=== PATIENT | female | born 1950 | race Caucasian/White ===

== ENCOUNTER 2016-12-03 13:37 | Outpatient (CLI) | payer MEDICARE ==
[2016-12-03 16:12] LABS: Hematocrit 41.6 % (36.0-47.0); Mean Platelet Volume 6.8 fL (7.4-10.4); Red Blood Cell (RBC) Count 4.66 mill/uL (4.20-5.40); White Blood Cell (WBC) Count 8.3 thou/uL (4.8-10.8)
== END 2016-12-03 13:38 | disposition home or self-care (01) ==
LOC: LABBT 13:37
PROVIDERS: ATTEND Orthopaedic Surgery
DX: Z01.812 Encounter for preprocedural laboratory examination (principal); T81.30XA Disruption of wound, unspecified, initial encounter; Z88.5 Allergy status to narcotic agent
CPT/HCPCS: 85027; 85652; 86140; 93005; 93010

== ENCOUNTER 2016-12-04 12:25 | Inpatient (IN) | payer MEDICARE ==
[2016-12-04] MEDS ORDERED: Fentanyl 100 MCG/2 ML VIAL ONE ×4 (13:52→16:30)
[2016-12-04] MEDS ORDERED: Midazolam HCl 2 mg/2 ml Vial ONE (13:52)
[2016-12-04 14:16] LABS: Anion Gap 13 mmol/L (10-20); BUN (Urea Nitrogen) 20 mg/dL (9.8-20.1); Calc. Creatinine Clearance 80 mL/min (70-130); Calcium 9.5 mg/dL (7.8-10.44); Carbon Dioxide 22 mmol/L (23-31); Chloride 105 mmol/L (98-107); Estimated GFR-MDRD 69
[2016-12-04] MEDS ORDERED: Bisacodyl 10 MG SUPP PR PRN (14:20)
[2016-12-04] MEDS ORDERED: Milk Of Magnesia 30 ML UDCUP PO PRN (14:20)
[2016-12-04] MEDS ORDERED: Acetaminophen 325 MG TAB PO PRN (14:20)
[2016-12-04] MEDS ORDERED: Ondansetron ODT 4 MG TAB PO PRN (14:20)
[2016-12-04] MEDS ORDERED: Cepastat Lozenges 1 LOZ PO PRN (14:20)
[2016-12-04] MEDS ORDERED: Ketorolac Tromethamine 30 MG/ML VIAL IM PRN (14:20)
[2016-12-04] MEDS ORDERED: Ondansetron HCl/PF 4 MG/2 ML Vial IVP PRN ×2 (14:20→17:00)
[2016-12-04] MEDS ORDERED: traMADol HCl 50 MG TAB PO PRN (14:20)
[2016-12-04] MEDS ORDERED: Lidocaine 2% PF 10 ML AMP (For Epidural Use) ONE (14:24)
[2016-12-04] MEDS ORDERED: Ketorolac Tromethamine 30 MG/ML VIAL ONE (14:24)
[2016-12-04] MEDS ORDERED: Propofol 200 MG/20 ML VIAL ONE (14:24)
[2016-12-04] MEDS ORDERED: HYDROcodone/Acetaminophen 5/325 mg Tablet PO PRN (14:26)
[2016-12-04] MEDS ORDERED: Vancomycin HCl 1 GM in Premix Bag 1 BAG IVPB SCH (15:00)
[2016-12-04] MEDS ORDERED: Promethazine HCl 25 MG/ML VIAL IM/IV PRN (17:00)
[2016-12-04 17:39] VITALS: BMI 30.8
[2016-12-04] MEDS ORDERED: Lisinopril 10 MG TAB PO SCH (18:00)
[2016-12-04] MEDS: HYDROcodone/Acetaminophen 10/325 mg Tablet PO PRN (18:15)
[2016-12-04] MEDS: Piperacillin/Tazobactam 3.375 GM in Sodium Chloride 0.9% 100 ML IVPB SCH ×2 (18:17→23:09)
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
[2016-12-04] MEDS: Ascorbic Acid 500 mg Chewable Tablet PO SCH (20:29)
[2016-12-04] MEDS: Gabapentin 300 MG CAP PO SCH (20:30)
[2016-12-04] MEDS: Cyclobenzaprine 10 MG TAB PO SCH (20:30)
[2016-12-04] MEDS: Aspirin 81 mg Enteric Coated Tablet PO SCH (20:30)
[2016-12-04] MEDS: Senokot S 8.6-50 MG TAB PO SCH (20:30)
[2016-12-04] MEDS: D5 1/2 NS w/20 mEq KCL 1,000 ML IV SCH (20:30)
[2016-12-04] MEDS ORDERED: FLU VACC TS2017-18 (>65YR) 0.5 ML SYRINGE IM ONE (21:00)
[2016-12-05] MEDS ORDERED: Vancomycin HCl 1 GM in Premix Bag 1 BAG IVPB SCH (03:00)
[2016-12-05] MEDS: HYDROcodone/Acetaminophen 10/325 mg Tablet PO PRN ×4 (05:18→21:24)
[2016-12-05] MEDS: Piperacillin/Tazobactam 3.375 GM in Sodium Chloride 0.9% 100 ML IVPB SCH ×4 (05:18→23:54)
[2016-12-05 05:49] LABS: #Basophils 0.1 thou/uL (0.0-0.2); #Eosinphils 0.2 thou/uL (0.0-0.7); #Lymphocytes 1.7 thou/uL (1.20-3.40); #Monocytes 0.8 thou/uL (0.11-0.59); #Neutrophils 6.1 thou/uL (1.40-6.50); %Basophils 0.7 % (0.0-1.0); %Eosinophils 1.9 % (0.0-10.0); %Lymphocytes 18.9 % (21.0-51.0); Mean Platelet Volume 6.5 fL (7.4-10.4); Red Blood Cell (RBC) Count 4.37 mill/uL (4.20-5.40); White Blood Cell (WBC) Count 8.7 thou/uL (4.8-10.8)
[2016-12-05 06:09] LABS: Anion Gap 8 mmol/L (10-20); BUN (Urea Nitrogen) 18 mg/dL (9.8-20.1); Calc. Creatinine Clearance 86 mL/min (70-130); Calcium 8.8 mg/dL (7.8-10.44); Carbon Dioxide 28 mmol/L (23-31); Chloride 105 mmol/L (98-107); Estimated GFR-MDRD 73
[2016-12-05] MEDS: D5 1/2 NS w/20 mEq KCL 1,000 ML IV SCH ×2 (06:56→22:52)
[2016-12-05] MEDS ORDERED: [UNRECOGNIZED DRUG - OTHER] PO SCH (09:00)
[2016-12-05] MEDS ORDERED: BIOTIN 10000 MCG PO SCH (09:00)
[2016-12-05] MEDS: Polyethylene Glycol 3350 17 GM Packet PO SCH (09:36)
[2016-12-05] MEDS: Cyanocobalamin (Vitamin B-12) 1,000 MCG TAB PO SCH (09:37)
[2016-12-05] MEDS: Cyclobenzaprine 10 MG TAB PO SCH ×2 (09:37→21:25)
[2016-12-05] MEDS: Enoxaparin Sodium 40 MG/0.4 ML SYRINGE SC SCH (09:37)
[2016-12-05] MEDS: Multivitamin W/ Minerals 1 TAB PO SCH (09:38)
[2016-12-05] MEDS: Fish Oil 1,000 MG CAP PO SCH (09:38)
[2016-12-05] MEDS: Calcium Carbonate 500 MG TAB PO SCH ×2 (09:38→16:37)
[2016-12-05] MEDS: Lisinopril 10 MG TAB PO SCH (09:39)
[2016-12-05] MEDS: Gabapentin 300 MG CAP PO SCH ×3 (09:39→21:25)
[2016-12-05] MEDS: Magnesium Oxide 250 MG TAB PO SCH (09:40)
[2016-12-05] MEDS: Aspirin 81 mg Enteric Coated Tablet PO SCH ×2 (09:40→21:27)
[2016-12-05] MEDS: Senokot S 8.6-50 MG TAB PO SCH ×2 (09:40→21:27)
[2016-12-05] MEDS: Ascorbic Acid 500 mg Chewable Tablet PO SCH ×2 (09:40→21:27)
[2016-12-05] MEDS: Stress 600 With Zinc 1 TAB PO SCH (09:41)
[2016-12-06 05:36] LABS: Anion Gap 9 mmol/L (10-20); BUN (Urea Nitrogen) 19 mg/dL (9.8-20.1); Calc. Creatinine Clearance 81 mL/min (70-130); Calcium 8.7 mg/dL (7.8-10.44); Carbon Dioxide 27 mmol/L (23-31); Chloride 107 mmol/L (98-107); Estimated GFR-MDRD 68
[2016-12-06] MEDS: HYDROcodone/Acetaminophen 10/325 mg Tablet PO PRN ×2 (06:10→20:33)
[2016-12-06] MEDS: Piperacillin/Tazobactam 3.375 GM in Sodium Chloride 0.9% 100 ML IVPB SCH ×3 (06:11→18:42)
[2016-12-06] MEDS: Senokot S 8.6-50 MG TAB PO SCH ×2 (09:40→20:35)
[2016-12-06] MEDS: Fish Oil 1,000 MG CAP PO SCH (09:40)
[2016-12-06] MEDS: Multivitamin W/ Minerals 1 TAB PO SCH (09:40)
[2016-12-06] MEDS: Magnesium Oxide 250 MG TAB PO SCH (09:40)
[2016-12-06] MEDS: Aspirin 81 mg Enteric Coated Tablet PO SCH ×2 (09:40→20:35)
[2016-12-06] MEDS: Polyethylene Glycol 3350 17 GM Packet PO SCH (09:40)
[2016-12-06] MEDS: Lisinopril 10 MG TAB PO SCH (09:41)
[2016-12-06] MEDS: Cyclobenzaprine 10 MG TAB PO SCH ×2 (09:41→20:35)
[2016-12-06] MEDS: Ascorbic Acid 500 mg Chewable Tablet PO SCH ×2 (09:41→20:35)
[2016-12-06] MEDS: Calcium Carbonate 500 MG TAB PO SCH ×2 (09:41→18:42)
[2016-12-06] MEDS: Gabapentin 300 MG CAP PO SCH ×3 (09:41→20:35)
[2016-12-06] MEDS: Cyanocobalamin (Vitamin B-12) 1,000 MCG TAB PO SCH (09:41)
[2016-12-06] MEDS: Stress 600 With Zinc 1 TAB PO SCH (09:45)
[2016-12-06] MEDS: Enoxaparin Sodium 40 MG/0.4 ML SYRINGE SC SCH (09:46)
--- NOTE | 2016-12-06 11:45 | SPC ---
ULTRASOUND GUIDED LEFT UPPER EXTREMITY PICC LINE PLACEMENT DATE: 12/06/2016 HISTORY: Left foot infection. The patient needs long-term IV antibiotics. FLUOROSCOPY: Total fluoroscopy time is 0.2 minutes with total dose of 1215 mGy*cm2. TECHNIQUE: After informed consent was obtained, the patient was placed on the angiography table in the supine p osition. An appropriate access site was determined with ultrasound guidance. The skin and subcutan eous tissues were infiltrated with buffered 1% lidocaine for local anesthesia at the intended punctu re site. The left brachial vein was accessed utilizing micropuncture technique and concurrent real-time ultra sound guidance. A 5-Polish peel-away sheath was placed. The guidewire was placed into the IVC to c onfirm placement in the venous system. The catheter was then measured and cut to the appropriate le ngth. Catheter was placed over the guidewire with the tip position overlying the cavoatrial junctio n. Guidewire and peel-away sheath were removed. The catheter was accessed and aspirated/flushed ea sily. The catheter was secured to the skin utilizing a Stat-Lock device. A dry sterile dressing wa s placed. FINDINGS: Technically successful placement of a single-lumen 5-Polish 44.5 cm PICC line via the left brachial vein. Tip of the catheter overlies the cavoatrial junction. Final spot fluoroscopic image of babar ter placement is obtained. IMPRESSION: Technically successful left upper extremity PICC line placement. POS: [facility]
[2016-12-06] MEDS: D5 1/2 NS w/20 mEq KCL 1,000 ML IV SCH (13:04)
[2016-12-06] MEDS ORDERED: Labetalol HCl 100 MG/20 ML VIAL SLOW IVP PRN (16:48)
[2016-12-06] MEDS: traMADol HCl 50 MG TAB PO PRN (18:42)
[2016-12-06] MEDS: Metoprolol Tartrate 25 MG TAB PO SCH (20:35)
[2016-12-06] MEDS: Vancomycin HCl 1 GM in Premix Bag 1 BAG IVPB SCH (20:37)
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
[2016-12-07] MEDS: Piperacillin/Tazobactam 3.375 GM in Sodium Chloride 0.9% 100 ML IVPB SCH ×5 (00:58→19:43)
[2016-12-07] MEDS: D5 1/2 NS w/20 mEq KCL 1,000 ML IV SCH ×2 (03:19→19:47)
[2016-12-07 05:57] LABS: Anion Gap 11 mmol/L (10-20); BUN (Urea Nitrogen) 17 mg/dL (9.8-20.1); Calc. Creatinine Clearance 86 mL/min (70-130); Calcium 9.4 mg/dL (7.8-10.44); Carbon Dioxide 25 mmol/L (23-31); Chloride 107 mmol/L (98-107); Estimated GFR-MDRD 73
[2016-12-07] MEDS ORDERED: Lisinopril 10 MG TAB PO SCH (09:00)
[2016-12-07] MEDS: Vancomycin HCl 1 GM in Premix Bag 1 BAG IVPB SCH ×2 (09:43→21:33)
[2016-12-07] MEDS: traMADol HCl 50 MG TAB PO PRN (09:43)
[2016-12-07] MEDS: Aspirin 81 mg Enteric Coated Tablet PO SCH ×2 (09:43→21:34)
[2016-12-07] MEDS: Cyclobenzaprine 10 MG TAB PO SCH ×2 (09:44→21:34)
[2016-12-07] MEDS: Gabapentin 300 MG CAP PO SCH ×3 (09:44→21:38)
[2016-12-07] MEDS: Lisinopril 10 MG TAB PO SCH (09:46)
[2016-12-07] MEDS: Metoprolol Tartrate 25 MG TAB PO SCH ×2 (09:46→21:34)
[2016-12-07] MEDS: Enoxaparin Sodium 40 MG/0.4 ML SYRINGE SC SCH (09:48)
[2016-12-07] MEDS: Polyethylene Glycol 3350 17 GM Packet PO SCH (09:48)
[2016-12-07] MEDS: Ascorbic Acid 500 mg Chewable Tablet PO SCH ×2 (09:49→21:34)
[2016-12-07] MEDS: Magnesium Oxide 250 MG TAB PO SCH (09:49)
[2016-12-07] MEDS: Multivitamin W/ Minerals 1 TAB PO SCH (09:50)
[2016-12-07] MEDS: Calcium Carbonate 500 MG TAB PO SCH ×2 (09:50→19:42)
[2016-12-07] MEDS: Cyanocobalamin (Vitamin B-12) 1,000 MCG TAB PO SCH (09:50)
[2016-12-07] MEDS: Senokot S 8.6-50 MG TAB PO SCH ×2 (09:51→21:34)
[2016-12-07] MEDS: Fish Oil 1,000 MG CAP PO SCH (09:51)
[2016-12-07] MEDS: Stress 600 With Zinc 1 TAB PO SCH (09:53)
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
[2016-12-07] MEDS: HYDROcodone/Acetaminophen 10/325 mg Tablet PO PRN (19:54)
[2016-12-08] MEDS: Gabapentin 300 MG CAP PO SCH ×4 (01:13→21:48)
[2016-12-08] MEDS: Piperacillin/Tazobactam 3.375 GM in Sodium Chloride 0.9% 100 ML IVPB SCH ×3 (01:14→12:14)
[2016-12-08] MEDS: HYDROcodone/Acetaminophen 10/325 mg Tablet PO PRN ×2 (06:21→21:48)
[2016-12-08] MEDS: Vancomycin HCl 1 GM in Premix Bag 1 BAG IVPB SCH (09:35)
[2016-12-08] MEDS: Enoxaparin Sodium 40 MG/0.4 ML SYRINGE SC SCH (09:40)
[2016-12-08] MEDS: Polyethylene Glycol 3350 17 GM Packet PO SCH (09:41)
[2016-12-08] MEDS: Fish Oil 1,000 MG CAP PO SCH (09:41)
[2016-12-08] MEDS: Cyclobenzaprine 10 MG TAB PO SCH ×2 (09:42→21:47)
[2016-12-08] MEDS: Magnesium Oxide 250 MG TAB PO SCH (09:42)
[2016-12-08] MEDS: Cyanocobalamin (Vitamin B-12) 1,000 MCG TAB PO SCH (09:43)
[2016-12-08] MEDS: Multivitamin W/ Minerals 1 TAB PO SCH (09:44)
[2016-12-08] MEDS: Ascorbic Acid 500 mg Chewable Tablet PO SCH ×2 (09:44→21:49)
[2016-12-08] MEDS: Lisinopril 10 MG TAB PO SCH (09:45)
[2016-12-08] MEDS: Calcium Carbonate 500 MG TAB PO SCH ×2 (09:45→16:18)
[2016-12-08] MEDS: Metoprolol Tartrate 25 MG TAB PO SCH ×2 (09:45→21:49)
[2016-12-08] MEDS: Aspirin 81 mg Enteric Coated Tablet PO SCH ×2 (09:46→21:47)
[2016-12-08] MEDS: Senokot S 8.6-50 MG TAB PO SCH ×2 (09:46→22:09)
[2016-12-08] MEDS: Stress 600 With Zinc 1 TAB PO SCH (09:51)
[2016-12-08] MEDS: D5 1/2 NS w/20 mEq KCL 1,000 ML IV SCH (12:15)
--- NOTE | 2016-12-08 12:40 | PDOC.PN ---
- Subjective Encounter Start Date: 12/08/16 Encounter Start Time: 11:40 Pt seen and exmained, no complaints, no events. BP this morning systolic 159. increased norvasc to 10mg, dose given, BP not rechecked by the time of the visit. Since then, repet BP 137 systolic no F/C,no N/V/d/c. tolerating IB abx, no itching or rash. DrLmos following. Pt hoping to go home otmorrowon IV abx PICC functioning well 10 point ROS performed and neg for all systems except as above - Objective MAR Reviewed: Yes Vital Signs & Weight: Vital Signs (12 hours) Temp Pulse Resp BP BP BP Pulse Ox 12/08/16 12:13 74 164/90 H 12/08/16 11:45 97.8 F 66 18 148/83 H 95 12/08/16 11:38 137/75 12/08/16 09:54 74 164/90 H 12/08/16 09:45 164/90 H 12/08/16 08:15 97.6 F 74 18 164/90 H 94 L 12/08/16 03:57 97.7 F 67 16 154/85 H 94 L Weight Admit Weight 174 lb 2.64 oz Weight 174 lb 2.64 oz I&O: 12/07/16 12/08/16 12/09/16 06:59 06:59 06:59 Intake Total 780 1780 Balance 780 1780 Result Diagrams: 12/05/16 05:01 12/07/16 04:47 Phys Exam - Physical Examination Constitutional: NAD HEENT: PERRLA, moist MMs, sclera anicteric, oral pharynx no lesions Neck: no nodes, no JVD, supple, full ROM Respiratory: no wheezing, no rales, no rhonchi, clear to auscultation bilateral Cardiovascular: RRR, no significant murmur, no rub Gastrointestinal: soft, non-tender, no distention, positive bowel sounds Musculoskeletal: no edema, pulses present Neurological: non-focal, normal sensation, moves all 4 limbs Lymphatic: no nodes Psychiatric: normal affect, A&O x 3 Skin: no rash, normal turgor, cap refill <2 seconds Dx/Plan (1) HTN (hypertension) Code(s): I10 - ESSENTIAL (PRIMARY) HYPERTENSION Status: Chronic Qualifiers: Hypertension type: essential hypertension Qualified Code(s): I10 - Essential (primary) hypertension Comment: better on norvasc plus lisinopril. continue both at present. Will sign off, can follow up with PCP. please call for additional needs (2) Postoperative wound infection Code(s): T81.4XXA - INFECTION FOLLOWING A PROCEDURE, INITIAL ENCOUNTER Status : Acute Qualifiers: Encounter type: initial encounter Qualified Code(s): T81.4XXA - Infection following a procedure, initial encounter Comment: s/p I&D. MSSa, E coli, CoNS. In vanc adn Zosyn. to be srewamlined by Dr cannon. PICC in place. planning for half-way IV antibiotics (3) Acute osteomyelitis of left calcaneus Code(s): M86.172 - OTHER ACUTE OSTEOMYELITIS, LEFT ANKLE AND FOOT Status: Acute (4) Postoperative anemia due to acute blood loss Code(s): D62 - ACUTE POSTHEMORRHAGIC ANEMIA Status: Resolved - Plan cont current plan of care, continue antibiotics, PT/OT * .
[2016-12-08] MEDS: cefTRIAXone\\ROCEPHIN 2 GM in Sodium Chloride 0.9% 100 ML IVPB SCH (16:18)
[2016-12-09] MEDS: D5 1/2 NS w/20 mEq KCL 1,000 ML IV SCH ×2 (01:51→19:31)
[2016-12-09] MEDS: HYDROcodone/Acetaminophen 10/325 mg Tablet PO PRN (05:23)
[2016-12-09] MEDS: Cyanocobalamin (Vitamin B-12) 1,000 MCG TAB PO SCH (08:41)
[2016-12-09] MEDS: Fish Oil 1,000 MG CAP PO SCH (08:41)
[2016-12-09] MEDS: Magnesium Oxide 250 MG TAB PO SCH (08:42)
[2016-12-09] MEDS: Lisinopril 10 MG TAB PO SCH (08:42)
[2016-12-09] MEDS: Senokot S 8.6-50 MG TAB PO SCH (08:42)
[2016-12-09] MEDS: Multivitamin W/ Minerals 1 TAB PO SCH (08:42)
[2016-12-09] MEDS: Cyclobenzaprine 10 MG TAB PO SCH (08:42)
[2016-12-09] MEDS: Calcium Carbonate 500 MG TAB PO SCH ×2 (08:42→17:41)
[2016-12-09] MEDS: Stress 600 With Zinc 1 TAB PO SCH (08:42)
[2016-12-09] MEDS: Enoxaparin Sodium 40 MG/0.4 ML SYRINGE SC SCH (08:43)
[2016-12-09] MEDS: Metoprolol Tartrate 25 MG TAB PO SCH (08:43)
[2016-12-09] MEDS: Gabapentin 300 MG CAP PO SCH ×2 (08:43→14:12)
[2016-12-09] MEDS: Polyethylene Glycol 3350 17 GM Packet PO SCH (08:43)
[2016-12-09] MEDS: Aspirin 81 mg Enteric Coated Tablet PO SCH (08:43)
[2016-12-09] MEDS: Ascorbic Acid 500 mg Chewable Tablet PO SCH (08:43)
--- NOTE | 2016-12-09 11:02 | PDOC.PN ---
- Subjective Encounter Start Date: 12/09/16 Encounter Start Time: 11:00 Ms. Welch does not have any complaints. She is anxious to be discharged. - Objective MAR Reviewed: Yes Vital Signs & Weight: Vital Signs (12 hours) Temp Pulse Resp BP BP Pulse Ox 12/09/16 08:43 71 137/80 12/09/16 08:42 137/80 12/09/16 07:32 97.9 F 71 14 137/80 94 L 12/09/16 04:00 97.8 F 71 16 158/85 H 93 L 12/09/16 00:00 97.9 F 65 14 176/78 H 93 L Weight Admit Weight 174 lb 2.64 oz Weight 174 lb 2.64 oz I&O: 12/08/16 12/09/16 12/10/16 06:59 06:59 06:59 Intake Total 1780 1790 Balance 1780 1790 Result Diagrams: 12/05/16 05:01 12/07/16 04:47 Phys Exam - Physical Examination HEENT: PERRLA Respiratory: no wheezing, no rales, no rhonchi, clear to auscultation bilateral Cardiovascular: RRR, no significant murmur Gastrointestinal: soft, non-tender, positive bowel sounds Musculoskeletal: no edema Dx/Plan (1) Acute osteomyelitis of left calcaneus Code(s): M86.172 - OTHER ACUTE OSTEOMYELITIS, LEFT ANKLE AND FOOT Status: Acute (2) Postoperative wound infection Code(s): T81.4XXA - INFECTION FOLLOWING A PROCEDURE, INITIAL ENCOUNTER Status : Acute Qualifiers: Encounter type: initial encounter Qualified Code(s): T81.4XXA - Infection following a procedure, initial encounter Comment: s/p I&D. MSSa, E coli, CoNS. In vanc adn Zosyn. to be srewamlined by Dr cannon. PICC in place. planning for roasterman IV antibiotics (3) HTN (hypertension) Code(s): I10 - ESSENTIAL (PRIMARY) HYPERTENSION Status: Chronic Qualifiers: Hypertension type: essential hypertension Qualified Code(s): I10 - Essential (primary) hypertension Comment: better on norvasc plus lisinopril. continue both at present. Will sign off, can follow up with PCP. please call for additional needs (4) S/P hardware removal Code(s): Z98.890 - OTHER SPECIFIED POSTPROCEDURAL STATES Status: Acute - Plan * Ankle infection, with possible infected hardware- wound culture is growing E Coli, and Staph Aureus, both of which are sensitive to Rocephin * HTN- blood pressures are better after the addition of Amlodipine * Awaiting arrangements for Outpatient IV Rocephin prior to discharge.
[2016-12-09] MEDS: cefTRIAXone\\ROCEPHIN 2 GM in Sodium Chloride 0.9% 100 ML IVPB SCH (14:12)
[2016-12-09] MEDS: traMADol HCl 50 MG TAB PO PRN (14:12)
[2016-12-09 15:54] VITALS: BP 158/80; TEMP 97.4
--- NOTE | 2016-12-10 10:10 | DIS ---
TRANSITIONAL CARE SUMMARY DATE OF ADMISSION: 12/04/2016 DATE OF DISCHARGE: 12/09/2016 ATTENDING PHYSICIAN: Michael Dee M.D. PRIMARY CARE PHYSICIAN: Maco Reilly M.D. DISCHARGE DISPOSITION: Home. PRIMARY DISCHARGE DIAGNOSES: 1. Postop infection of the ankle. 2. Hypertension. 3. History of degenerative joint disease. DISCHARGE MEDICATIONS: Include Rocephin 2 grams IV until 12/2016, amlodipine 10 mg p.o. daily, tram adol 100 mg q.4 hours as needed for pain, MiraLax 17 grams daily, lycopene 1 capsule daily, Toprol-X L 25 mg twice daily, magnesium oxide 400 mg daily, lisinopril 10 mg daily, krill oil 1 tablet daily, Vanderbilt 10/325 one tablet q.4 hours as needed for pain, Neurontin 300 mg t.i.d., Flexeril 10 mg twice a day, vitamin B12 5000 mcg daily, vitamin D3 1000 units daily, and Os-Deejay D 500 mg twice daily, Bi otin 10,000 mcg daily, aspirin 81 mg a day. PROCEDURES DONE DURING ADMISSION: The patient had an irrigation and debridement of the medial ankle with ankle arthrotomy and lateral wound irrigation CODE STATUS: FULL CODE. ALLERGIES: MORPHINE. HOSPITAL COURSE: Ms. Welch is a pleasant 63-year-old female, who was admitted electively due to a n infection in her left ankle. She underwent a debridement and wound irrigation. Wound cultures we re obtained and grew out E. coli as well as coagulase-negative Staph as well as Staph aureus, all of which were sensitive to Rocephin. She had an IV or a PICC line placed and her antibiotics were tra nsitioned to IV Rocephin, which she will need to complete until 01/10/2017. Arrangements were made for her to obtain IV antibiotics, and she was subsequently discharged home to have a close followup with Wound Care and also for monitoring her CBC, etc., with regards to the IV antibiotic therapy. A mlodipine was also added for better blood pressure control.
== END 2016-12-09 19:20 | disposition home or self-care (01) | DRG 902 ==
LOC: SDC 12:25 → SJJU 14:20
PROVIDERS: ADMIT Orthopaedic Surgery; ATTEND Orthopaedic Surgery
PROC: 0JBR0ZZ Excision of Left Foot Subcutaneous Tissue and Fascia, Open Approach (ICD-10-PCS; principal; 2016-12-04)
PROC: 02HV33Z Insertion of Infusion Device into Superior Vena Cava, Percutaneous Approach (ICD-10-PCS; 2016-12-06)
DX: T81.31XA Disruption of external operation (surgical) wound, not elsewhere classified, initial encounter (principal); T81.4XXA Infection following a procedure, initial encounter; M86.172 Other acute osteomyelitis, left ankle and foot; G62.9 Polyneuropathy, unspecified; I10 Essential (primary) hypertension; D62 Acute posthemorrhagic anemia; B95.61 Methicillin susceptible Staphylococcus aureus infection as the cause of diseases classified elsewhere; B96.20 Unspecified Escherichia coli [E. coli] as the cause of diseases classified elsewhere; M19.90 Unspecified osteoarthritis, unspecified site; G40.909 Epilepsy, unspecified, not intractable, without status epilepticus; Z87.81 Personal history of (healed) traumatic fracture; Z87.820 Personal history of traumatic brain injury; Z88.5 Allergy status to narcotic agent
CPT/HCPCS: 36415; 36569; 80048; 85025; 85027; 85652; 86140; 87070; 87077; 87186; 87205; 93005; 93010; C1751; G8978-GP-CL; G8979-GP-CJ; J0696; J1650; J1885; J2001; J2250; J2543; J2704; J3010; J3370; J7050

== ENCOUNTER 2018-11-18 09:59 | Outpatient (CLI) | payer MEDICARE ==
--- NOTE | 2018-11-18 12:06 | BD ---
DEXA BONE DENSITY STUDY: Date: 11/18/18 HISTORY: Postmenopausal osteoporosis screening. COMPARISON: None. FINDINGS: Lumbar Spine: BMD (g/cm2) L1 1.048 T-Score: 0.5 Z-Score: 2.4 L2 1.107 T-Score: 0.7 Z-Score: 2.8 L3 1.217 T-Score: 1.2 Z-Score: 3.4 L4 1.159 T-Score: 0.9 Z-Score: 3.1 L1-L4 1.131 T-Score: 0.8 Z-Score: 2.9 Right Femoral Neck: 0.696 T-Score: -1.4 Z-Score: 0.4 Total Right Hip: 1.025 T-Score: 0.7 Z-Score: 2.1 WHO Classification: Osteopenia. IMPRESSION: Osteopenia with elevated fracture risk. POS: [facility]
== END 2018-11-18 10:00 | disposition home or self-care (01) ==
LOC: BICMAMMO 09:59
PROVIDERS: ATTEND Internal Medicine
DX: Z13.820 Encounter for screening for osteoporosis (principal); Z78.0 Asymptomatic menopausal state; M85.851 Other specified disorders of bone density and structure, right thigh
CPT/HCPCS: 77080

== ENCOUNTER 2018-12-03 13:25 | Outpatient (CLI) | payer MEDICARE ==
--- NOTE | 2018-12-03 16:05 | MMO ---
Bilateral MAMMO Bilat Screen [facility]. CLINICAL HISTORY: Patient is 68 years old and is seen for screening. The patient has the following family history of breast cancer: paternal aunt and sister, at age 38. The patient has no personal history of cancer. The patient has a history of left cyst aspiration at age 39 - benign and left needle biopsy at age 39 - benign. VIEWS: The views performed were: bilateral craniocaudal with tomosynthesis and bilateral mediolateral oblique with tomosynthesis. FILMS COMPARED: The present examination has been compared to prior imaging studies performed at [facility] on 06/09/2008, and at [facility] on 11/22/2005, 12/27/2005 and 07/15/2006. This study has been interpreted with the assistance of computer-aided detection. MAMMOGRAM FINDINGS: There are scattered fibroglandular densities. There are no suspicious masses, suspicious calcifications, or new areas of architectural distortion. IMPRESSION: THERE IS NO MAMMOGRAPHIC EVIDENCE OF MALIGNANCY. A ROUTINE FOLLOW-UP MAMMOGRAM IN 1 YEAR IS RECOMMENDED. THE RESULTS OF THIS EXAM WERE SENT TO THE PATIENT. ACR BI-RADS Category 1 - Negative MAMMOGRAPHY NOTE: 1. A negative mammogram report should not delay a biopsy if a dominant of clinically suspicious mass is present. 2. Approximately 10% to 15% of breast cancers are not detected by mammography. 3. Adenosis and dense breasts may obscure an underlying neoplasm. Reported by: ANDRE MARSHALL MD Electonically Signed: [id number]
== END 2018-12-03 13:26 | disposition home or self-care (01) ==
LOC: BICMAMMO 13:25
PROVIDERS: ATTEND Internal Medicine
DX: Z12.31 Encounter for screening mammogram for malignant neoplasm of breast (principal); Z91.89 Other specified personal risk factors, not elsewhere classified; Z80.3 Family history of malignant neoplasm of breast
CPT/HCPCS: 77063; 77067

== ENCOUNTER 2019-07-13 22:50 | Inpatient (IN) | payer MEDICARE ==
--- NOTE | 2019-07-13 23:52 | RAD ---
Exam: Chest one view HISTORY:Fever Comparison: 05/20/2016 FINDINGS: Cardiac silhouette: Normal Aorta: Unremarkable Pulmonary vessels: Normal Costophrenic angles: Clear LUNGS: Linear density in the right lung base may represent subsegmental atelectasis or scar. Pneumothorax: None Osseous abnormalities: None IMPRESSION: No acute cardiopulmonary process.
[2019-07-14 00:01] LABS: #Lymphocytes 0.9 thou/uL (1.20-3.40); #Monocytes 1.5 thou/uL (0.11-0.59); #Neutrophils 13.4 thou/uL (1.40-6.50); %Basophils 0.1 % (0.0-1.0); %Eosinophils 0.2 % (0.0-10.0); %Lymphocytes 5.7 % (21.0-51.0); %Monocytes 9.6 % (0.0-10.0); %Neutrophils 84.3 % (42.0-75.0); Hemoglobin 12.5 g/dL (12.0-16.0); Mean Corpuscular HGB CONC 33.1 g/dL (32.0-36.0); Mean Corpuscular Hemoglobin 30.8 pg (27.0-31.0); Mean Platelet Volume 7.2 fL (7.4-10.4); Platelet Count 226 thou/uL (130-400); RBC Distribution Width 11.2 % (11.5-14.5); Red Blood Cell (RBC) Count 4.05 mill/uL (4.20-5.40); White Blood Cell (WBC) Count 15.8 thou/uL (4.8-10.8)
--- NOTE | 2019-07-14 00:03 | CT ---
Exam: Head CT without contrast HISTORY: Altered mental status. Fever. COMPARISON: 03/30/2016 FINDINGS: Hemorrhage: No intraparenchymal hemorrhage or extra-axial hematoma. Brain parenchyma: Cortical alvarez-white matter differentiation is preserved. No mass effect or midline shift. Basilar cisterns are patent. Ventricular system: Ventricles and sulci are patent and symmetric. Calvarium: Intact. Sinuses and mastoid air cells: Adequate aeration. IMPRESSION: No acute intracranial process.
[2019-07-14 00:18] LABS: ALT (SGPT) 101 U/L (8-55); AST (SGOT) 75 U/L (5-34); Albumin 3.6 g/dL (3.4-4.8); Alkaline Phosphatase 217 U/L (40-110); Anion Gap 12 mmol/L (10-20); BUN (Urea Nitrogen) 14 mg/dL (9.8-20.1); Calc. Creatinine Clearance 0 mL/min (70-130); Calcium 8.5 mg/dL (7.8-10.44); Carbon Dioxide 23 mmol/L (23-31); Chloride 105 mmol/L (98-107); Estimated GFR-MDRD 55; Glucose 158 mg/dL (80-115); Protein, Total 6.6 g/dL (6.0-8.3); Sodium 137 mmol/L (136-145)
[2019-07-14] MEDS ORDERED: Potassium Chloride 20 MEQ TAB ONE (01:34)
[2019-07-14 02:21] LABS: Bacteria/HPF 4+ HPF (None Seen); Bilirubin Negative (Negative); Blood, Urine 2+ (Negative); Clarity Turbid (Clear); Glucose, Urine (Dipstick) Normal (Negative); Leukocyte 500 Leu/uL (Negative); Nitrite 2+ (Negative); Protein, Urine (Dipstick) 70 mg/dL (Neg-Trace); Squamous Epithelial 0-3 HPF (0-3); Urobilinogen Normal mg/dL (Less than 2); WBC/HPF Greater than 50 HPF (0-3)
[2019-07-14] MEDS ORDERED: Acetaminophen 325 MG TAB PO PRN (02:46)
[2019-07-14 03:07] VITALS: BMI 30.9
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
[2019-07-14] MEDS: cefTRIAXone\\ROCEPHIN 1 GM in Sodium Chloride 0.9% 100 ML IVPB SCH (04:24)
[2019-07-14] MEDS: Lactated Ringer's 1,000 ML IV SCH ×2 (04:25→05:08)
[2019-07-14] MEDS ORDERED: Ondansetron ODT 4 MG TAB PO PRN (04:26)
[2019-07-14] MEDS ORDERED: Potassium Chloride 20 MEQ TAB PO SCH (04:30)
[2019-07-14] MEDS: Potassium Chloride 8 MEQ TAB PO SCH ×2 (07:10→16:27)
[2019-07-14] MEDS: Calcium Carbonate 600 MG TAB PO SCH (07:10)
[2019-07-14] MEDS: Enoxaparin Sodium 30 MG/0.3 ML SYRINGE SC SCH (07:10)
[2019-07-14] MEDS: Lisinopril 10 MG TAB PO SCH (07:11)
[2019-07-14] MEDS: Magnesium Oxide 250 MG TAB PO SCH (07:11)
[2019-07-14] MEDS: Gabapentin 300 MG CAP PO SCH ×3 (07:11→21:27)
[2019-07-14] MEDS: Multivitamin W/ Minerals 1 TAB PO SCH (07:11)
[2019-07-14 07:45] LABS: HBCM Index 0.43 S/CO (0-0.79); HBSAg Index 0.14 S/CO (0-0.99); Hep A IgM AB Non-Reactive (NonReactive); Hep A IgM S/CO 0.12 S/CO (0-0.79); Hep B Surf Ag Non-Reactive S/CO (NonReactive); Hep C IgG Ab Non-Reactive (NonReactive); Hep C Index 0.12 S/CO (0-0.79); Hepatitis B Core IgM Abs Non-Reactive (NonReactive)
[2019-07-14 11:24] LABS: SARS-CoV-2 MS2 Positive; SARS-CoV-2 N Gene Negative; SARS-CoV-2 S Gene Negative; SARS-CoV-2 orf1ab Negative
[2019-07-14 13:37] LABS: Anion Gap 11 mmol/L (10-20); BUN (Urea Nitrogen) 10 mg/dL (9.8-20.1); Calc. Creatinine Clearance 83 mL/min (70-130); Calcium 8.9 mg/dL (7.8-10.44); Carbon Dioxide 24 mmol/L (23-31); Chloride 106 mmol/L (98-107); Estimated GFR-MDRD 69; Glucose 144 mg/dL (80-115); Potassium 3.5 mmol/L (3.5-5.1); Sodium 137 mmol/L (136-145)
--- NOTE | 2019-07-14 14:59 | ULT ---
RENAL ULTRASOUND: INDICATION: History of CVA tenderness on the right with UTI and pyelonephritis. COMPARISON: None. FINDINGS: The right kidney measures 11.5 x 5.4 cm with right renal cortical thickness of 1.4 cm. No hydronephr osis is demonstrated. The echogenicity of the kidney is within normal limits. The left kidney measured 12.0 x 4.2 cm with left renal cortical thickness of 1.1 cm. No hydronephros is is grossly evident. Incidental peripelvic cyst is seen within the inferior pole of the left kidne y measuring 1.1 cm. An additional 1.1 cm cyst is seen within the left mid kidney. The bladder is largely decompressed. IMPRESSION: 1. No suspicious sonographic abnormality involving both kidneys. There is mild diffuse renal cortic al thinning involving the left kidney with left peripelvic cysts. 2. Decompression of the bladder. POS: [facility]
--- NOTE | 2019-07-14 15:30 | EKG ---
Test Reason : Blood Pressure : / mmHG Vent. Rate : 105 BPM Atrial Rate : 105 BPM P-R Int : 156 ms QRS Dur : 102 ms QT Int : 356 ms P-R-T Axes : 032 026 040 degrees QTc Int : 470 ms Sinus tachycardia Otherwise normal ECG Confirmed by IMMANUEL RODRIGUEZ, OMA Wade ([id number]), commissioning editor TEJ DEE ([id number]) on 07/14/2019 3:30:10 PM Referred By: Confirmed By:OMA GAMBINO MD
[2019-07-14] MEDS: Acetaminophen 325 MG TAB PO PRN (18:15)
[2019-07-14] MEDS ORDERED: Amlodipine 5 MG TAB PO SCH (21:00)
[2019-07-15] MEDS: cefTRIAXone\\ROCEPHIN 1 GM in Sodium Chloride 0.9% 100 ML IVPB SCH (03:36)
[2019-07-15] MEDS: Acetaminophen 325 MG TAB PO PRN (03:50)
[2019-07-15 07:17] LABS: #Eosinphils 0.2 thou/uL (0.0-0.7); #Lymphocytes 1.1 thou/uL (1.20-3.40); #Monocytes 1.1 thou/uL (0.11-0.59); %Basophils 0.4 % (0.0-1.0); %Eosinophils 1.9 % (0.0-10.0); %Lymphocytes 12.7 % (21.0-51.0); %Monocytes 12.9 % (0.0-10.0); %Neutrophils 72.2 % (42.0-75.0); Hemoglobin 11.8 g/dL (12.0-16.0); Mean Corpuscular HGB CONC 32.8 g/dL (32.0-36.0); Mean Corpuscular Volume 94.5 fL (78.0-98.0); Mean Platelet Volume 7.7 fL (7.4-10.4); Platelet Count 224 thou/uL (130-400); RBC Distribution Width 11.3 % (11.5-14.5); Red Blood Cell (RBC) Count 3.82 mill/uL (4.20-5.40); White Blood Cell (WBC) Count 8.3 thou/uL (4.8-10.8)
[2019-07-15 07:36] LABS: ALT (SGPT) 85 U/L (8-55); AST (SGOT) 51 U/L (5-34); Albumin 3.2 g/dL (3.4-4.8); Alkaline Phosphatase 210 U/L (40-110); Anion Gap 12 mmol/L (10-20); BUN (Urea Nitrogen) 9 mg/dL (9.8-20.1); Bilirubin, Total 0.4 mg/dL (0.2-1.2); Calc. Creatinine Clearance 84 mL/min (70-130); Calcium 8.4 mg/dL (7.8-10.44); Carbon Dioxide 24 mmol/L (23-31); Chloride 105 mmol/L (98-107); Estimated GFR-MDRD 70; Globulin 2.9 g/dL (2.4-3.5); Glucose 109 mg/dL (80-115); Protein, Total 6.1 g/dL (6.0-8.3); Sodium 138 mmol/L (136-145)
[2019-07-15] MEDS: Multivitamin W/ Minerals 1 TAB PO SCH (08:07)
[2019-07-15] MEDS: Calcium Carbonate 600 MG TAB PO SCH (08:07)
[2019-07-15] MEDS: Lisinopril 10 MG TAB PO SCH (08:07)
[2019-07-15] MEDS: Magnesium Oxide 250 MG TAB PO SCH (08:07)
[2019-07-15] MEDS: Gabapentin 300 MG CAP PO SCH (08:07)
[2019-07-15] MEDS ORDERED: Enoxaparin Sodium 30 MG/0.3 ML SYRINGE SC SCH (08:13)
[2019-07-15] MEDS: Enoxaparin Sodium 30 MG/0.3 ML SYRINGE SC SCH (08:14)
[2019-07-15] MEDS ORDERED: Potassium Chloride 20 MEQ TAB PO SCH (08:15)
--- NOTE | 2019-07-15 08:19 | PDOC.FM ---
- Subjective Subjective: Documented O2 sat of 83% overnight. Otherwise, BENNETT. Patient reports feeling well this AM. No N/V/C. Diarrhea improving. No hematuria or dysuria. No fever/ chills. - Objective MAR Reviewed: Yes Vital Signs & Weight: Vital Signs (12 hours) Temp Pulse Resp BP Pulse Ox 07/15/19 07:09 98.5 F 98 18 118/76 93 L 07/15/19 03:45 99.6 F 83 18 125/74 83 L 07/15/19 00:40 98.0 F 74 18 137/71 92 L 07/14/19 22:00 94 L 07/14/19 21:45 98.1 F 92 18 128/83 94 L Weight Weight 81.919 kg I&O: 07/14/19 07/15/19 07/16/19 06:59 06:59 06:59 Intake Total 1100 2100 Output Total 700 Balance 1100 1400 Result Diagrams: 07/15/19 06:31 07/15/19 06:31 Phys Exam - Physical Examination Constitutional: NAD HEENT: moist MMs Neck: supple, full ROM Respiratory: no wheezing, no rales, no rhonchi, clear to auscultation bilateral Cardiovascular: RRR, no significant murmur Gastrointestinal: soft, non-tender Musculoskeletal: no edema No CVA tenderness Neurological: non-focal, moves all 4 limbs Psychiatric: normal affect, A&O x 3 Skin: no rash, normal turgor Dx/Plan (1) Hypokalemia Code(s): E87.6 - HYPOKALEMIA Status: Acute (2) Sepsis secondary to UTI Code(s): A41.9 - SEPSIS, UNSPECIFIED ORGANISM; N39.0 - URINARY TRACT INFECTION, SITE NOT SPECIFIED Status: Acute (3) Chronic atrial fibrillation Code(s): I48.2 - CHRONIC ATRIAL FIBRILLATION * DO NOT USE * Status: Chronic (4) HTN (hypertension) Code(s): I10 - ESSENTIAL (PRIMARY) HYPERTENSION Status: Chronic Qualifiers: Hypertension type: essential hypertension Qualified Code(s): I10 - Essential (primary) hypertension - Plan Plan: 69 yo F presents for fever, confusion & found to be septic 2/2 UTI. Sepsis 2/2 Pyelonephritis -pulse >90, RR >20, T 103; WBC 15.8; Right CVA tenderness -UA showed blood, LE, bacteria 4+. Bld Cxs NGTD. urine Cxs still pending. -Will continue IV rocephin pending Cxs as labs continue to improve w/ no fever overnight. -Will consider renal sono if clinical condition worsens. Acute metabolic encephalopathy, resolved -Secondary to the above -CT head negative -A&Ox4 on exam this AM. Covid r/o -covid 19 swab negative Dehydration, resolved Hypokalemia -K 3.0 -Will 40 meq PO w/ bfast & recheck in AM. HTN -home medications Transaminitis, improving -Hepatitis panel negative. Could be 2/2 sepsis as improved with IVFs & Abx. Will encourage outpatient f/u of LFTs. Hx of Afib -Aware, resolved s/p cardioversion. RLS -continue home gabapentin Diet: HH DVT ppx: lovenox GI ppx: none PCP: [facility] Code status: partial: chemical and intubation only Dispo: Anticipate d/c w/ transition to PO meds later today pending Cx results. Addendum - Attending - Attending Attestation Date/Time: 07/15/19 [id number] I personally evaluated the patient and discussed the management with Dr. Hart. I agree with the History, Examination, Assessment and Plan documented above with any addition or exceptions noted below. Stable for discharge.
[2019-07-15] MEDS: Potassium Chloride 8 MEQ TAB PO SCH (08:56)
[2019-07-15] MEDS ORDERED: Enoxaparin Sodium 40 MG/0.4 ML SYRINGE SC SCH (09:00)
[2019-07-15 13:29] VITALS: BP 135/84; TEMP 98.3
[2019-07-16] MEDS ORDERED: Potassium Chloride 20 MEQ TAB PO SCH (08:00)
--- NOTE | 2019-07-16 11:43 | DIS ---
DATE OF ADMISSION: 07/14/2019 DATE OF DISCHARGE: 07/15/2019 RESIDENT: Kacy Hart MD ADMITTING ATTENDING: Pedrito Tabares MD DISCHARGE ATTENDING: Kevin Alford MD CONSULTS: None. PROCEDURES: 1. Brain CT on 07/13/2019, which showed no acute intracranial process. 2. Chest x-ray on 07/13/2019, which showed no acute cardiopulmonary process. 3. Renal ultrasound on 07/14/2019, which showed no suspicious sonographic abnormality involving both kidneys. PRIMARY DIAGNOSES: 1. Sepsis secondary to suspected urinary tract infection. 2. Acute metabolic encephalopathy secondary to #1. 3. Dehydration. 4. Hypokalemia. 5. Transaminitis. 6. Fecal incontinence. SECONDARY DIAGNOSES: 1. Hypertension. 2. History of atrial fibrillation. 3. Restless legs syndrome. DISCHARGE MEDICATIONS: 1. Centrum Silver multivitamin 1 tablet p.o. daily. 2. Metoprolol succinate 25 mg p.o. b.i.d. 3. Flexeril 10 mg p.o. at bedtime. 4. MegaRed omega-3 krill oil soft gels 1 capsule p.o. daily. 5. Lisinopril 10 mg p.o. daily. 6. Mag oxide 500 mg p.o. daily. 7. Gabapentin 300 mg p.o. t.i.d. 8. Potassium gluconate 600 mg p.o. b.i.d. 9. Calcium carbonate 1200 mg p.o. daily. 10. Amlodipine 5 mg p.o. at bedtime. 11. Acetaminophen 650 mg p.o. q.4 hours p.r.n. 12. Keflex 500 mg p.o. q.12 hours for 5 days, #10 capsules. DISCONTINUED MEDICATIONS: None. HOSPITAL COURSE: The patient is a 69-year-old female with a past medical history notable for multiple recurrent UTIs, who presented to the emergency department due to reported fever at home with associated confusion. On presentation to the emergency department, the patient was noted to meet SIRS criteria with a heart rate in the 110s and a fever of 101 degrees Fahrenheit. In addition, her white blood cell count was elevated at 15.8 and her procalcitonin was elevated at 8.35. Blood and urine cultures were obtained as well as a urinalysis which was notable for 2+ blood, 2+ nitrites, 500 leukocyte esterase, RBCs, WBCs, and 4+ bacteria. The patient was therefore determined to be septic secondary to a UTI and was admitted to the medical floor for close monitoring and further management overnight. On the floor, the patient was started on Rocephin for her presumptive UTI and a renal ultrasound was also obtained to rule out any signs of obstruction which was WNLs. By the following morning, the patient's vitals had stabilized and all laboratories were trending down with a white blood cell count down to 8.3 and procalcitonin level down to 7.38. Due to the patient's having a very important procedure scheduled on 07/16/2019 and the patient being his mode of transportation, the decision was made to discharge the patient prior to cultures or sensitivities on a p.o. antibiotic regimen with close followup regarding the culture results as an outpatient. Based on her prior UTIs and urine cultures and sensitivities, she was discharged on p.o. Keflex to be taken for 5 days to complete a 7 day total course of antibiotics. Regarding the patient's encephalopathy, her encephalopathy completely resolved after IV fluids and antibiotics as she was A and O x4 on exam on the date of discharge. Regarding the patient's fecal incontinence, she reported this has been a chronic issue for her, but stool studies were performed to rule out any infectious etiology for her incontinence/diarrhea, which were notable only for an elevated fecal lactoferrin, but Shiga toxin and Campylobacter antigens were negative and stool cultures were pending, but preliminary read prior to discharge showed moderate normal enteric shweta. The patient was counseled on the fact that her stool incontinence could be what is contributing to her recurrent UTIs, and that she should have this evaluated as soon as possible on an outpatient basis with her primary care physician. DISPOSITION: Stable. DISCHARGE INSTRUCTIONS: 1. Location: Home. 2. Diet: Heart healthy, low-sodium diet. 3. Activity: As tolerated. No restrictions. 4. Follow-up: The patient was instructed to follow up with her PCP, Dr. Rachid Zafar, within 1 week of discharge. Job ID: [id number] [facility]
== END 2019-07-15 12:36 | disposition home or self-care (01) | DRG 871 ==
LOC: ERS 22:50 → 2SW 07-14 02:35 → OBSVTOIN 07-14 05:03 → T4-B 07-14 21:52
PROVIDERS: ADMIT Family Medicine; ATTEND Family Medicine
DX: A41.9 Sepsis, unspecified organism (principal); G93.41 Metabolic encephalopathy; N12 Tubulo-interstitial nephritis, not specified as acute or chronic; I48.20 Chronic atrial fibrillation, unspecified; Z20.828 Contact with and (suspected) exposure to other viral communicable diseases; I10 Essential (primary) hypertension; G25.81 Restless legs syndrome; E66.9 Obesity, unspecified; E87.6 Hypokalemia; E86.0 Dehydration; R15.9 Full incontinence of feces; R74.0 Nonspecific elevation of levels of transaminase and lactic acid dehydrogenase [LDH]; Z68.31 Body mass index [BMI] 31.0-31.9, adult; Z90.49 Acquired absence of other specified parts of digestive tract; Z87.891 Personal history of nicotine dependence; Z88.5 Allergy status to narcotic agent; Z79.899 Other long term (current) drug therapy
CPT/HCPCS: 36415; 70450; 71045; 76770; 80048; 80053; 80074; 81003; 81015; 83605; 83630; 83880; 84145; 85025; 87040; 87045; 87046; 87086; 87324; 87427; 87449; 87635; 93005; J0696; J1650; J3490; Q0162; U0003

== ENCOUNTER 2020-04-05 14:12 | Outpatient (CLI) | payer MEDICARE | END 2020-04-05 14:13 | disposition home or self-care (01) | LOC: BICMAMMO 14:12 | PROVIDERS: ATTEND Internal Medicine | DX: Z12.31 Encounter for screening mammogram for malignant neoplasm of breast (principal); Z80.3 Family history of malignant neoplasm of breast; Z91.89 Other specified personal risk factors, not elsewhere classified | CPT/HCPCS: 77063; 77067 ==

== ENCOUNTER 2021-09-27 19:44 | Emergency (ER) | payer MEDICARE | END 2021-09-27 21:49 | disposition home or self-care (01) | LOC: ERS 19:49 | DX: J06.9 Acute upper respiratory infection, unspecified (principal); I10 Essential (primary) hypertension; I48.91 Unspecified atrial fibrillation; Z79.899 Other long term (current) drug therapy | CPT/HCPCS: 71045; 96360 ==